=== PATIENT | female | born 1930 | race Caucasian/White ===

== ENCOUNTER 2017-03-24 16:12 | Emergency (ER) | payer MEDICARE, MEDICAID ==
[~2017-03-24] VITALS: Ht 162.6 cm; Wt 90.7 kg
[2017-03-24 16:46] VITALS: BP 103/58
[2017-03-24] MEDS ORDERED: Lidocaine 1% Plain 30 ml INJ ONE (17:00)
[2017-03-24] MEDS ORDERED: Norco 7.5mg/325mg tab ORAL ONE (17:00)
--- NOTE | 2017-03-24 17:09 | Emergency Room Report ---
History of Present Illness General Chief Complaint: Upper Extremity Injury Source: Patient, Family Member Present Illness HPI 87-year-old female presents to the emergency department complaining of 10/10 in severity pain with swelling, tenderness and obvious deformity to the left hand and wrist status post mechanical trip and fall at 7 in the morning today. Patient reports that she attempted to break her fall with her arm and she states she believes she also hit the back of her head. Patient denies loss of consciousness she denies nausea vomiting, diplopia, weakness. Patient denies taking blood thinning medications. Patient states she has taken Tylenol with mild relief and has been applying ice. Patient made a makeshift sling out of her scarf. Patient states that swelling has progressed over the course of the day. She denies previous injury to the extremity.Denies numbness tingling or loss of sensation or gross motor movements of the extremities, incontinence of bowel or bladder. Denies CP, Palpitations, LOC, AMS, dizziness, Changes in Vision, Sensation, paresthesias, or a sudden severe headache. Allergies: Coded Allergies: No Known Allergies (Unverified , 03/24/17) Patient History Past Medical History: see triage record Past Surgical History: none Pertinent Family History: none Last Menstrual Period: na Now: No Immunizations: UTD Reviewed Nursing Documentation: PMH: Agreed, PSxH: Agreed Nursing Documentation-PMH Past Medical History: No History, Except For Hx Cardiac Problems: Yes - hypothyroid Hx Hypertension: Yes Hx Diabetes: Yes Review of Systems All Other Systems: negative except mentioned in HPI Physical Exam Vital Signs Date Time Temp Pulse Resp B/P (MAP) Pulse Ox O2 Delivery O2 Flow Rate FiO2 03/24/17 16:35 98.4 69 18 103/58 96 Room Air Sp02 EP Interpretation: reviewed, normal General Appearance: no apparent distress, alert, GCS 15, non-toxic Head: normocephalic, atraumatic Eyes: bilateral eye normal inspection, bilateral eye PERRL ENT: hearing grossly normal, normal voice Neck: full range of motion, supple/symm/no masses Respiratory: lungs clear, normal breath sounds, speaking full sentences Cardiovascular #1: regular rate, rhythm, normal capillary refill Musculoskeletal: back normal, gait/station normal, normal range of motion, swelling - left wrist, obvious deformity, other - no snuff box ttp, or pain with axial loading of the thumb. , tender - left wrist medial and lateral aspect. Neurologic: alert, oriented x3, responsive, motor strength/tone normal, sensory intact, normal gait, speech normal, no pronator Psychiatric: judgement/insight normal, memory normal, mood/affect normal Skin: normal color, no rash, warm/dry, well hydrated Procedures Additional Procedure Procedure Narrative Reduction Procedure: - Verbal consent was obtained for local anesthetic and manual reduction of the left wrist. - Hematoma block using lidocaine 8cc is performed in a sterile fashion -Single attempt was made to reduce the displacement of the fracture using traction and digital manipulation of the bones. -Pt. tolerated the Procedure well. - Pt. was immediately placed into a sugar tong splint by software technical lead. Pt. remained NVI. - Post reduction films were obtained which showed some minimal improvement in anatomical positioning and displacement of the distal radius per preliminary read in the ED by Dr. Hernandes- his interpretation has been scribed by KELSEA Webb. Medical Decision Making PA Attestation Dr. Hernandes is my supervising Physician whom patient management has been discussed with. Diagnostic Impression: Primary Impression: Wrist fracture Qualified Codes: S62.102A - Fracture of unspecified carpal bone, left wrist, initial encounter for closed fracture ER Course 87-year-old female presents to the emergency department complaining of 8/10 in severity pain with swelling, tenderness and obvious deformity to the left wrist status post mechanical trip and fall at 7 in the morning today. Patient reports that she attempted to break her fall with her arm and she states she believes she also hit the back of her head. Patient denies loss of consciousness she denies nausea vomiting, diplopia, weakness. Patient denies taking blood thinning medications. Patient states she has taken Tylenol with mild relief and has been applying ice. Patient made a makeshift sling out of her scarf. Patient states that swelling has progressed over the course of the day. She denies previous injury to the extremity.Denies numbness tingling or loss of sensation or gross motor movements of the extremities, incontinence of bowel or bladder. Denies CP, Palpitations, LOC, AMS, dizziness, Changes in Vision, Sensation, paresthesias, or a sudden severe headache. Ddx considered but are not limited to Fracture, dislocation, contusion, Sprain/ Strain/Spasm, Vital signs: are WNL, pt. is afebrile H&PE are most consistent with musculoskeletal injury will perform imaging to r/ o fractures/dislocations. ORDERS: - - X-ray Left hand 3 views - negative for fx , Dislocation, or significant soft tissue injury, per preliminary read in ED by Dr. Hernandes - interpretation is scribed by PA. - X-ray Left Wrist- 3 views - POSITIVE FOR ULNAR STYLOID and distal Radius fracture with some displacement . No Dislocation, or significant soft tissue injury, per preliminary read in ED by Dr. Hernandes - interpretation is scribed by PA. - X-ray Left Wrist 3 views - POSITIVE FOR ULNAR STYLOID and distal Radius fracture with some mild improvement in angulation of distal radius . No Dislocation, or significant soft tissue injury, per preliminary read in ED by Dr. Hernandes - interpretation is scribed by KELSEA. ED INTERVENTIONS: - [place] PO - Hematoma Block and manual reduction - Left arm sugar tong Splint applied by software technical lead. Pt. remains neurovascularly intact. DISCHARGE: At this time pt. is stable for d/c to home. Will provide printed patient care instructions, and any necessary prescriptions. Care plan and follow up instructions have been discussed with the patient prior to discharge. Last Vital Signs Date Time Temp Pulse Resp B/P (MAP) Pulse Ox O2 Delivery O2 Flow Rate FiO2 03/24/17 16:46 18 103/58 96 Room Air 03/24/17 16:35 98.4 69 Disposition: HOME, SELF-CARE Condition: Stable Scripts Ibuprofen* (MOTRIN*) 400 Mg Tablet 400 MG ORAL THREE TIMES A DAY, #30 TAB 0 Refills Prov: Lucy Webb P.A. 03/24/17 Hydrocodone Bit/Acetaminophen 5-325* (NORCO 5-325*) 1 Each Tablet 1 TAB ORAL Q6H Y for For Pain, #10 TAB 0 Refills Prov: Lucy Webb P.A. 03/24/17 Referrals: NON PHYSICIAN (PCP) Patient Instructions: Wrist Fracture Additional Instructions: Take medications as directed. Follow up with a [facility] in 3-5 days, even if your symptoms have resolved. --Please review list of primary care clinics, if you do not already have a primary care provider Return sooner to ED if new symptoms occur, or current symptoms become worse. - Please note that this Emergency Department Report was dictated using [employer] tender technology software, occasionally this can lead to erroneous entry secondary to interpretation by the dictation equipment. Lucy Webb Mar 24, 2017 17:09
[2017-03-24] MEDS ORDERED: NORCO 5-325 TA1 EACH ORAL (18:24)
[2017-03-24] MEDS ORDERED: IBUPROFEN400 MG ORAL (18:24)
[2017-03-24 18:35] VITALS: BP 128/61
[2017-03-24 18:37] VITALS: BP 128/61
--- NOTE | 2017-03-25 09:34 | Diagnostic Imaging Report ---
Indication: PAIN STATUS post fall Technique: 3 views left hand Comparison: none Findings: There is a fracture of the distal radius. This is posterior angulated and impacted. There is an associated nondisplaced fracture of the ulnar styloid. No other acute fractures are demonstrated. Bones are osteoporotic. Impression: Positive for distal radial and ulnar fractures, as described This agrees with the conclusions of the emergency room physician described in the electronic medical record
--- NOTE | 2017-03-25 09:35 | Diagnostic Imaging Report ---
Clinical Indication:PAIN Technique: 3 views of the left wrist Comparison: None Findings: Is a comminuted fracture of the distal radial metaphysis. This is slightly posteriorly displaced and posteriorly angulated. This does not appear to involve the articular surface. There is an associated nondisplaced fracture of the ulnar styloid. No evidence of acute carpal fracture. Bones are osteoporotic. Impression: Positive for distal radial fracture and ulnar styloid fracture, as described This agrees with the conclusions described by the ER physician in the electronic medical record
--- NOTE | 2017-03-25 09:59 | Diagnostic Imaging Report ---
Clinical Indication:PAIN Technique: 3 views of the left wrist Comparison: One hour earlier Findings: Interim splinting of previously demonstrated distal radial and ulnar fracture. Splint obscures bony detail. Alignment is overall similar. Impression: Distal radial and ulnar fracture, in plaster
== END 2017-03-24 18:45 | disposition home or self-care (01) ==
LOC: EMR 16:51
DX: S52.592A Other fractures of lower end of left radius, initial encounter for closed fracture (principal); S52.615A Nondisplaced fracture of left ulna styloid process, initial encounter for closed fracture; W01.0XXA Fall on same level from slipping, tripping and stumbling without subsequent striking against object, initial encounter; Y92.89 Other specified places as the place of occurrence of the external cause; I10 Essential (primary) hypertension; E11.9 Type 2 diabetes mellitus without complications; E03.9 Hypothyroidism, unspecified
CPT/HCPCS: 29125; 73110; 73130; 99284; J2001